=== PATIENT | female | born 1945 | race Caucasian/White ===

== ENCOUNTER → 2016-10-01 | Day surgery (SDC) | payer MEDICARE, OTHER ==
[~2016-10-01] VITALS: Ht 152.4 cm; Wt 67.0 kg
[~2016-10-01] MED LIST: ACIDOPHILUS1 EAC2 PO; ADVAIR 100-501 EACH INH; ALDACTONE25 MG PO; ASPIRIN EC81 MG PO; COLACE100 MG PO; COREG 3.1253.125 MG PO; COZAAR100 MG PO; DITROPAN5 MG PO; FIBERCON1 TAB PO; HYZAAR 100-12.1 EACH PO; HYZAAR 100-251 EACH PO; LIPITOR40 MG PO; NITROSTAT0.4 MG SL; NORCO 5-325 TA1 EACH PO; NORVASC5 MG PO; OXYBUTYNIN CHLOR5 M1 PO; PROTONIX40 MG PO; PROVENTIL OR V6.7 GM INH; ZOFRAN4 MG PO
--- NOTE | ~2016-10-01 | OR ---
PATIENT'S NAME: VAZQUEZ PIERCE [facility] AGE: 70 Y [address] ROOM: [place] [id number] [place] [facility] [place]: 10/01/[place] OR/Procedure Report DISCHARGE DATE: FAMILY PHYSICIAN: Emily Winkler MD ATTENDING PHYSICIAN: Kaleb Day SURGEON: Kaleb Day DO CHILD CARE COOK: DATE OF PROCEDURE: 10/01/2016 PREOPERATIVE DIAGNOSIS: Distal sternal incisional hernia and diastasis recti. POSTOPERATIVE DIAGNOSIS: Distal sternal incisional hernia and diastasis recti. PROCEDURE PERFORMED: Herniorrhaphy with approximation of diastasis and the overlying mesh placement. REFERRING PHYSICIAN: Emily Winkler MD BRIEF HISTORY: Ms. Pierce is a 70-year-old white female, who approximately 2- 1/2 years ago had a sternotomy for coronary artery bypass and has done well in the interim. Recently, she has noted bulging at the inferior portion of her incision. 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 A CAT scan has been performed which shows not only a small incisional hernia and enlarging diastasis as well. DESCRIPTION OF PROCEDURE: The patient has been brought to the operative suite today after informed consent was obtained for repair. She was sterilely prepped and draped over the chest. Her distal sternal incision was extended somewhat inferiorly onto the anterior epigastrium and dissection was carried down to the level of the fascia and noted separation was noted just distal to the xiphoid process and also diastasis was appreciated. We carried out dissection freeing the abdominal layers and reapproximated the fascia with 2-0 Ethibond. We then placed 0 Ethibond sutures circumferentially around the appropriately sized mesh and over the primary repair. The soft tissues were then closed in a layered fashion with 2-0 Vicryl and 4-0 Monocryl. Pressure dressings were applied. The patient tolerated the procedure well and was transferred to the outpatient recovery room in stable condition. KALEB DAY DO PATIENT'S NAME: VAZQUEZ PIERCE [facility] AGE: 70 Y [address] ROOM: [place] [address] [place] [facility] [place]: 10/01/2016 OR/Procedure Report DISCHARGE DATE: FAMILY PHYSICIAN: Emily Winkler MD ATTENDING PHYSICIAN: Kaleb Day/toshia /[id number] d: 10/05/16 1057 t: 10/06/16 0754, OPERATIVE SUMMARY
[2016-10-01 09:10] LABS: INR - (THERAPEUTIC) 1.03 (0.92-1.07); PROTIME 10.8 SECONDS (9.8-11.4)
[2016-10-01 09:22] LABS: ALBUMIN 3.6 gm/dL (3.5-5.0); ANION GAP 14.8 (10.0-19.0); PHOSPHORUS 3.4 mg/dL (2.5-4.9); POTASSIUM 3.8 mMol/L (3.7-5.1)
[2016-10-01 09:23] LABS: BASOPHIL % 0.5 %; EOSINOPHIL # 0.2 K/uL (0.0-0.5); HEMATOCRIT 35.9 % (33.0-46.0); HEMOGLOBIN 12.3 g/dL (10.0-15.0); IMMATURE GRANULOCYTE % 0.4 %; LYMPHOCYTE # 2.7 K/uL (0.8-4.0); LYMPHOCYTE % 35.3 %; MCH 31.2 pg (27.0-34.0); MCHC 34.3 gm/dL (32.0-36.5); MCV 91.1 fl (83.0-98.0); MONOCYTE # 0.6 K/uL (0.0-1.0); MONOCYTE % 7.3 %; MPV 10.1 fl (9.4-12.4); NEUTROPHIL # (ANC) 4.1 K/uL (1.8-7.8); NEUTROPHIL % 54.5 %; NRBC % 0 /100WBC (0-0.00); PLATELET COUNT 198 K/uL (150-450); RBC 3.94 M/uL (3.50-5.50); RDW-CV 13.2 % (11.9-14.6); WBC 7.5 K/uL (4.0-11.0)
[2016-10-01 10:53] LABS: BILIRUBIN URINE NEGATIVE (NEGATIVE); BLOOD URINE NEGATIVE /UL (NEGATIVE); COLOR URINE STRAW (YELLOW); GLUCOSE URINE NEGATIVE (NEGATIVE); KETONE URINE NEGATIVE (NEGATIVE); LEUKOCYTES URINE NEGATIVE /UL (NEGATIVE); NITRITE URINE NEGATIVE (NEGATIVE); PROTEIN URINE NEGATIVE (NEGATIVE); TURBIDITY URINE CLEAR (CLEAR); UROBILINOGEN URINE NORMAL (NORMAL)
== END ==
LOC: GPOC 09-30 13:00 → GSDC 07:27 → GPOC 08:00
PROVIDERS: Thoracic Surgery (Cardiothoracic Vascular Surgery)
PROC: 0WUF0JZ Supplement Abdominal Wall with Synthetic Substitute, Open Approach (ICD-10-PCS; principal; 2016-10-01)
DX: K43.2 Incisional hernia without obstruction or gangrene (principal); E78.5 Hyperlipidemia, unspecified; I10 Essential (primary) hypertension; I25.10 Atherosclerotic heart disease of native coronary artery without angina pectoris; K21.9 Gastro-esophageal reflux disease without esophagitis; Z90.710 Acquired absence of both cervix and uterus; M19.90 Unspecified osteoarthritis, unspecified site; Z95.5 Presence of coronary angioplasty implant and graft; Z79.899 Other long term (current) drug therapy; Z79.82 Long term (current) use of aspirin; Z95.1 Presence of aortocoronary bypass graft
CPT/HCPCS: C1781; J1100; J2001; J2250; J2405; J3010; J3370; J7030

== ENCOUNTER → 2016-10-20 | Outpatient (CLI) | payer MEDICARE, OTHER ==
[2016-10-20 17:02] LABS: ANION GAP 14.5 (10.0-19.0); CALCIUM 9.7 mg/dL (8.5-10.5); CREATININE 0.9 mg/dL (0.5-1.1); POTASSIUM 4.5 mMol/L (3.7-5.1); TOTAL BILIRUBIN 0.6 mg/dL (0.0-1.5); TOTAL PROTEIN 7.2 g/dL (6.0-8.4)
== END ==
LOC: LNHI 16:33
PROVIDERS: Internal Medicine Cardiovascular Disease
DX: I25.10 Atherosclerotic heart disease of native coronary artery without angina pectoris (principal); I10 Essential (primary) hypertension; E78.2 Mixed hyperlipidemia; R06.02 Shortness of breath